=== PATIENT | female | born 1945 | race African-American/Black ===

== ENCOUNTER 2025-06-08 17:02 | Emergency (ER) | payer OTHER ==
[~2025-06-08] VITALS: Ht 165.1 cm; Wt 73.0 kg
[2025-06-08 17:11] VITALS: O2SAT 100
[2025-06-08 19:00] VITALS: BP 125/52; PULSE 83; RESP 12; TEMP 36.8; O2SAT 100
== END 2025-06-08 19:35 | disposition home or self-care (01) ==
LOC: ER 17:02
DX: R42 Dizziness and giddiness (principal); I12.9 Hypertensive chronic kidney disease with stage 1 through stage 4 chronic kidney disease, or unspecified chronic kidney disease; N18.9 Chronic kidney disease, unspecified; Z99.2 Dependence on renal dialysis
CPT/HCPCS: 99283; A4606